=== PATIENT | female | born 1990 | race Caucasian/White ===

== ENCOUNTER 2016-07-28 11:58 | Emergency (ER) | payer SELFPAY ==
[~2016-07-28] VITALS: Ht 175.3 cm; Wt 93.2 kg
[~2016-07-28 11:58] MED LIST: ANTIVERT 25MG25 MG PO; CEPHALEXIN500 M1 PO; CIPRO 500MG TA500 MG PO; DILANTIN 100MG100 MG PO; IMITREX50 MG PO; OMNICEF 300MG300 MG PO; PERCOCET 325 MG1 TA2 PO; PHENERGAN 25 TA25 MG PO; PYRIDIUM200 M1 PO; ZOFRAN ODT4 MG PO
[2016-07-28 11:59] VITALS: BP 141/83; PULSE 80; TEMP 97.7
[2016-07-28] MEDS ORDERED: ZOLOFT 100MG100 MG PO (12:03)
[2016-07-28] MEDS ORDERED: PHENERGAN 25 TA25 MG PO (13:27)
== END 2016-07-28 13:36 | disposition home or self-care (01) ==
LOC: COL.ER 11:58
DX: K21.9 Gastro-esophageal reflux disease without esophagitis (principal); R12 Heartburn; R45.1 Restlessness and agitation; F31.9 Bipolar disorder, unspecified
CPT/HCPCS: J2060; J2405

== ENCOUNTER → 2017-01-18 | Outpatient (REF) ==
[~2017-01-18] MED LIST changes: +ZOLOFT 100MG100 MG PO
== END ==
LOC: WSOH 13:15 → WSPT 13:30
DX: Z02.1 Encounter for pre-employment examination (principal)